=== PATIENT | male | born 1950 | race Caucasian/White ===

== ENCOUNTER → 2017-11-19 | Outpatient (CLI) | payer MEDICARE, OTHER ==
[~2017-11-19] MED LIST: AMINO ACIDS; AZITHROMYCIN500 MG PO; CREATINE; CRESTOR; CRESTOR20 MG PO; FISH OIL CONC1000 MG PO; GLUTAMINE; LORTAB 5/500 501 TAB PO; LORTAB 7.5/5001 TAB; MOTRIN 800800 MG/TAB PO; MVI; NORCO 325 MG-7.1 TAB PO; VITAMIN C1 TAB PO; VITAMIN C500 MG PO; ZITHROMAX 250M250 MG PO; [UNRECOGNIZED DRUG - OTHER]; [UNRECOGNIZED DRUG - OTHER]; [UNRECOGNIZED DRUG - OTHER]; cla
== END ==
LOC: COL.RAD 08:29
DX: C61 Malignant neoplasm of prostate (principal)
CPT/HCPCS: A9503

== ENCOUNTER 2017-11-28 09:19 | Inpatient (IN) | payer MEDICARE, OTHER ==
[~2017-11-28] VITALS: Ht 185.4 cm; Wt 110.6 kg
[2017-12-16] VITALS (10 sets, daily range): BP systolic 125–156; BP diastolic 71–95; PULSE 60–86; TEMP 97.5–98.7
[2017-12-16 09:33] LABS: BASO # 0.1 (0.0-0.2); EOS # 0.3 (0.0-0.7); EOS % 5.5 % (0-4.0); GRAN # 3.1 (1.4-6.5); GRAN % 61.6 % (42.2-75.2); LYMPH # 1.1 (1.2-3.4); LYMPH % 21.7 % (20.0-51.0); MEAN CELL VOLUME 92 fl (80.0-100.0); MEAN CORPUSCULAR HEMOGLOBIN 32 pg (27.0-31.0); MEAN CORPUSCULAR HGB CONC 35 g/dl (33.0-37.0); MEAN PLATELET VOLUME 8.9 fl (7.4-10.4); MONO # 0.5 (0.1-0.6); MONO % 9.8 % (1.7-9.3); PLATELET COUNT 161 K/mm3 (130-400); RED BLOOD COUNT 4.36 M/mm3 (4.20-5.60); REDCELL DISTRIBUTION WIDTH-CV 12.9 % (11.5-14.5)
[2017-12-16 09:49] LABS: CREATININE, serum 0.84 mg/dL (0.66-1.25); POTASSIUM 4.2 mmol/L (3.4-5.0)
[2017-12-17 02:13] VITALS: BP 136/69; PULSE 84; TEMP 98.8
[2017-12-17 05:18] VITALS: BP 132/71; PULSE 67; TEMP 99
[2017-12-17 07:15] LABS: BASO % 0.1 % (0.0-2.0); GRAN # 9.4 (1.4-6.5); GRAN % 86.1 % (42.2-75.2); HEMOGLOBIN 12.1 g/dl (13.5-18.0); LYMPH # 0.6 (1.2-3.4); LYMPH % 5.9 % (20.0-51.0); MEAN CELL VOLUME 94 fl (80.0-100.0); MEAN CORPUSCULAR HEMOGLOBIN 32 pg (27.0-31.0); MEAN CORPUSCULAR HGB CONC 34 g/dl (33.0-37.0); MEAN PLATELET VOLUME 9.3 fl (7.4-10.4); MONO # 0.8 (0.1-0.6); MONO % 7.4 % (1.7-9.3); PLATELET COUNT 167 K/mm3 (130-400); RED BLOOD COUNT 3.76 M/mm3 (4.20-5.60); REDCELL DISTRIBUTION WIDTH-CV 12.9 % (11.5-14.5)
[2017-12-17 07:19] LABS: HEMATOCRIT 35.4 % (42.0-52.0)
[2017-12-17 07:37] LABS: CALCIUM 8.3 mg/dL (8.4-10.2); CREATININE, serum 0.84 mg/dL (0.66-1.25); POTASSIUM 4.4 mmol/L (3.4-5.0)
[2017-12-17 10:01] VITALS: BP 108/55; PULSE 65; TEMP 97.3
[2017-12-17 13:30] VITALS: BP 110/62; PULSE 65; TEMP 97.9
== END 2017-12-17 16:24 | disposition home or self-care (01) | DRG 708 ==
LOC: SURG 12-16 08:50 → INPTSU 12-16 08:50 → SURG 12-16 11:00
PROVIDERS: Registered Nurse; Urology
PROC: 07BC4ZX Excision of Pelvis Lymphatic, Percutaneous Endoscopic Approach, Diagnostic (ICD-10-PCS; 2017-12-16)
PROC: 8E0W4CZ Robotic Assisted Procedure of Trunk Region, Percutaneous Endoscopic Approach (ICD-10-PCS; 2017-12-16)
PROC: 0VT04ZZ Resection of Prostate, Percutaneous Endoscopic Approach (ICD-10-PCS; principal; 2017-12-16 14:00)
DX: C61 Malignant neoplasm of prostate (principal); Z87.891 Personal history of nicotine dependence
CPT/HCPCS: J0690; J1100; J1885; J2250; J2405; J2704; J3010; J7030; J7120